=== PATIENT | female | born 1970 | race Two or more races ===

== ENCOUNTER 2020-02-22 22:59 | Emergency (ER) | payer OTHER ==
[~2020-02-22] VITALS: Ht 154.9 cm; Wt 68.0 kg
[2020-02-22 23:47] VITALS: BP 174/108
--- NOTE | 2020-02-23 00:25 | NUR ---
called pt to be seen by er doc. pt not in wr at this time. will follow up.
== END 2020-02-23 00:58 | disposition home or self-care (01) ==
LOC: ER 23:05
DX: L02.415 Cutaneous abscess of right lower limb (principal); I10 Essential (primary) hypertension